=== PATIENT | female | born 1975 | race Hispanic/Latino ===

== ENCOUNTER 2023-10-01 12:34 | Emergency (ER) | payer SELFPAY ==
[2023-10-01] MEDS ORDERED: Lorazepam 2 MG/ML VIAL ONE (13:08)
[2023-10-01] MEDS ORDERED: levETIRAcetam 500 MG (5 mL) VIAL ONE (13:08)
[2023-10-01 13:41] LABS: #Basophils 0.06 10x3/uL (0.0-0.2); #Eosinphils 0.05 10x3/uL (0.0-0.5); #Monocytes 0.36 10x3/uL (0.0-1.1); %Basophils 0.6 % (0.0-2.0); %Eosinophils 0.5 % (0.0-6.0); %Lymphocytes 21.7 % (18.0-47.0); %Monocytes 3.8 % (0.0-10.0); %Neutrophils 72.7 % (40.0-75.0); Hematocrit 41.7 % (34.9-44.5); Mean Corpuscular HGB CONC 33.6 g/dL (32.0-36.0); Mean Corpuscular Hemoglobin 30.4 pg (27.0-33.0); Mean Corpuscular Volume 90.7 fL (81.6-98.3); Mean Platelet Volume 10.8 fL (7.4-10.4); Platelet Count 299 10x3/uL (150-450); RBC Distribution Width 13.8 % (11.5-14.5); White Blood Cell (WBC) Count 9.5 10x3/uL (3.5-10.5)
[2023-10-01 13:43] LABS: BHCG - Serum Negative (NEGATIVE); Pregs Control Background? CLEAR/WHITE (CLR/WHITE); Pregs Control Bar Appear? YES (CONTROL BAR)
[2023-10-01 13:49] LABS: Acetaminophen Less than 10 mcg/mL (10.0-30.0); Alcohol Less than 10.0 mg/dL (Less than 10); Lipase 35 U/L (8-78); Salicylate Less than 8.0 mg/dL (15.0-30.0)
[2023-10-01 13:51] LABS: ALT (SGPT) 26 U/L (8-55); AST (SGOT) 20 U/L (5-34); Albumin 4.1 g/dL (3.5-5.0); Alkaline Phosphatase 64 U/L (40-110); Anion Gap 23 mmol/L (10-20); BUN (Urea Nitrogen) 13 mg/dL (7.0-18.7); Bilirubin, Total 0.6 mg/dL (0.2-1.2); CK (CPK) 75 U/L (29-168); Calc. Creatinine Clearance 0 mL/min (70-130); Calcium 9.1 mg/dL (7.8-10.44); Carbon Dioxide 14 mmol/L (22-29); Chloride 104 mmol/L (98-107); Estimated GFR 76; Globulin 3.5 g/dL (2.4-3.5); Glucose 149 mg/dL (70-105); Protein, Total 7.6 g/dL (6.0-8.3); Sodium 137 mmol/L (136-145)
[2023-10-01 13:57] LABS: Troponin I Less than 0.010 ng/mL (< 0.028)
[2023-10-01 16:59] LABS: Bilirubin Neg (Negative); Blood, Urine 25 (Negative); Clarity Clear (Clear); Glucose, Urine (Dipstick) Normal (Negative); Ketone, Urine 15 mg/dL (Negative); Leukocyte Negative (Negative); Nitrite Negative (Negative); Protein, Urine (Dipstick) 15 mg/dl (Neg-Trace); Urobilinogen Normal mg/dL (Less than 2)
[2023-10-01 17:06] LABS: Amphetamine Detected (NotDetected); Barbiturates Screen Not Detected (NotDetected); Benzodiazepine Screen Not Detected (NotDetected); Cocaine Metabolite Screen Not Detected (NotDetected); Methadone Not Detected (NotDetected); Methamphetamine Not Detected (NotDetected); Opiate Screen Not Detected (NotDetected); Oxycodone Screen Not Detected (NotDetected); Phencyclidine (PCP) Not Detected (NotDetected); THC/Cannabinoid Screen Not Detected (NotDetected); Tricyclic Screen Not Detected (NotDetected)
[2023-10-01 17:14] LABS: Bacteria/HPF Rare-Few HPF (None Seen); CAUTI Indications for Culture Pelvic or flank pain; Urine Culture Reflex No No; WBC/HPF 0-3 HPF (0-3)
== END 2023-10-01 17:50 | disposition home or self-care (01) ==
LOC: CSHERS 12:34
DX: G40.909 Epilepsy, unspecified, not intractable, without status epilepticus (principal); E86.0 Dehydration; F15.10 Other stimulant abuse, uncomplicated; E72.20 Disorder of urea cycle metabolism, unspecified
CPT/HCPCS: 70450; 71045; 80053; 80306; 80307; 81001; 82140; 82550; 83690; 84484; 84703; 85025; 93005; 96374; 96375; J1953; J2060